=== PATIENT | male | born 1945 | race Caucasian/White ===

== ENCOUNTER 2023-07-15 12:56 | Emergency (ER) | payer OTHER ==
[2023-07-15] MEDS ORDERED: TDAP (DIPHTH,PERTUSS(ACELL),TET VAC) 0.5 ML VIAL IMVAC ONE (13:38)
[2023-07-15 13:52] LABS: Absolute Basophils 0.1 K/uL (0-0.5); Absolute Eosinophils 0.4 K/uL (0-0.5); Absolute Lymphocytes (CBC) 3.6 K/uL (0.7-4.9); Absolute Monocytes 1.3 K/uL (0.1-1.3); Absolute Neutrophil 5.8 K/uL (1.8-8.0); Basophils % 1.3 % (0-1.3); Eosinophils % 3.5 % (0-4.4); Hematocrit 39.7 % (39.6-49.0); Hemoglobin 12.8 g/dL (13.6-17.9); Lymphocytes % 31.8 % (15.3-44.8); MCH 28.6 pg (27.0-35.0); MCHC 32.1 g/dL (32.0-36.0); MCV 89.1 fL (80-100); MPV 9.2 fL (7.6-11.3); Monocytes % 11.8 % (3.3-12.3); Neutrophils % 51.6 % (41.7-73.7); Platelets 290 thou/uL (152-406); RBC Red Blood Cell Count 4.46 M/uL (4.33-5.43); Red Cell Distribution Width 17.4 % (12.1-15.2)
--- NOTE | 2023-07-15 14:07 | RAD REPORT ---
EXAM DESCRIPTION: CT - Head C Spine Mpr Wo Con - 07/15/2023 1:44 pm CLINICAL HISTORY: Head and neck injury status post fall. Head and neck pain COMPARISON: 2021 CT head TECHNIQUE: Computed axial tomography of the head and cervical spine was obtained. Sagittal and coronal reconstruction was performed. All CT scans are performed using dose optimization technique as appropriate and may include automated exposure control or mA/KV adjustment according to patient size. FINDINGS: Craniotomy presumably secondary to old frontal lobe bleeds. Frontal lobe gliosis. No acute intracranial bleed. No extra-axial fluid collection Fluid within the visualized sinuses and mastoids is not seen A cervical fracture is not visualized. No dislocation is noted. IMPRESSION: No acute intracranial abnormality is seen. A cervical fracture is not visualized. If the patient continues to have symptoms to suggest intracranial /spinal cord pathology then MRI wou ld be recommended
[2023-07-15 14:08] LABS: Anion Gap 8.1 mEq/L (5.0-15.0); Potassium 4.1 mEq/L (3.5-5.1); Troponin High Sensitivity 8.6 pg/mL (<58.9)
[2023-07-15] MEDS ORDERED: MECLIZINE HCL 12.5 MG TAB ONE (14:31)
--- NOTE | 2023-07-15 15:01 | RAD REPORT ---
EXAM DESCRIPTION: [place] Single View07/15/2023 2:44 pm CLINICAL HISTORY: Chest pain COMPARISON: 2017 FINDINGS: The lungs appear clear of acute infiltrate. The heart is normal size. Post surgical roberts es involve the chest. Pacemaker leads in place IMPRESSION: No acute abnormalities displayed
--- NOTE | 2023-07-15 15:05 | ER ---
Nurse's Notes [facility] Name: Sherman Pandey Jr Age: 77 yrs Sex: Male : 1945 Arrival Date: 07/15/2023 Time: 12:56 Bed 4 Private MD: Diagnosis: Other peripheral vertigo Presentation: 07/14 13:20 Chief complaint: Dizziness after mechanical fall from yesterday. Fell and hit head in yard, abrasion noted to left advent. Coronavirus screen: At this time, the client does not indicate any symptoms associated with coronavirus-19. Ebola Screen: No symptoms or risks identified at this time. Initial Sepsis Screen: Does the patient meet any 2 criteria? No. Patient's initial sepsis screen is negative. Does the patient have a suspected source of infection? No. Patient's initial sepsis screen is negative. Risk Assessment: Do you want to hurt yourself or someone else? Patient reports no desire to harm self or others. Onset of symptoms was July 14, 2023. 13:20 Method Of Arrival: Ambulatory hb 13:20 Acuity: JEN 3 hb Historical: - Allergies: 13:21 No Known Allergies; hb - PMHx: 13:21 Atrial Fib; CHF; CVA; Diabetes - IDDM; Hyperlipidemia; Colon CA (Hyperlipidemia); hb - PSHx: 13:21 Colon Resection (Hyperlipidemia); CABG (Hyperlipidemia); hb - Immunization history:: Adult Immunizations up to date. - Infectious Disease History:: Denies. - Social history:: Smoking status: Patient denies any tobacco usage or history of. Screenin:28 [facility] ED Fall Risk Assessment (Adult) History of falling in the last 3 months, mb9 including since admission Yes- single mechanical fall (1 pt) Confusion or Disorientation No (0 pts) Intoxicated or Sedated No (0 pts) Impaired Gait No (0 pts) Mobility Assist Device Used No (0 pt) Altered Elimination No (0 pt) Score/Fall Risk Level 0 - 2 = Low Risk Oriented to surroundings, Maintained a safe environment, Educated pt \T\ family on fall prevention, incl call for assistance when getting out of bed. Abuse screen: Denies threats or abuse. Nutritional screening: No deficits noted. Tuberculosis screening: No symptoms or risk factors identified. Assessment: 13:40 General: Appears in no apparent distress. Behavior is calm, cooperative. Pain: Denies mb9 pain. Neuro: Castaneda Agitation-Sedation Scale (RASS): 0 - Alert and Calm Level of Consciousness is awake, alert, obeys commands, Oriented to person, place, time, situation, Appropriate for age Reports dizziness. Neuro: Castaneda Agitation-Sedation Scale (RASS): Receiver Dispatcher are equal bilaterally Moves all extremities. Gait is steady, Speech is normal, Facial symmetry appears normal, Pupils are PERRLA, Intact. Cardiovascular: Heart tones S1 S2 present Patient's skin is warm and dry. Respiratory: Airway is patent Respiratory effort is even, unlabored, Respiratory pattern is regular, symmetrical, Breath sounds are clear bilaterally. GI: Abdomen is round non-distended. : No signs and/or symptoms were reported regarding the genitourinary system. EENT: No signs and/or symptoms were reported regarding the EENT system. Derm: Skin is pink, warm \T\ dry. Musculoskeletal: Range of motion: intact in all extremities. Injury Description: Abrasion sustained to face. 15:12 Reassessment: Patient appears in no apparent distress at this time. No changes from mb9 previously documented assessment. Patient and/or family updated on plan of care and expected duration. Pain level reassessed. Patient is alert, oriented x 3, equal unlabored respirations, skin warm/dry/pink. Vital Signs: 13:20 BP 144 / 64; Pulse 70; Resp 18; Temp 98.6(O); Pulse Ox 100% on R/A; Weight 113.4 kg; hb Height 5 ft. 11 in. ; Pain 6/10; 14:35 BP 144 / 62; Pulse 62; Resp 18; Pulse Ox 97% on R/A; mb9 15:12 BP 154 / 60; Pulse 66; Resp 18; Pulse Ox 100% on R/A; mb9 13:20 Body Mass Index 34.87 (113.40 kg, 180.34 cm) hb 13:20 Pain Scale: Adult hb ED Course: 12:59 Patient arrived in ED. im 13:07 Obie Lopez MD is Attending Physician. ec2 13:21 Triage completed. hb 13:22 Nicole Pichardo RN is Primary Nurse. mb9 13:22 Arm band placed on. hb 13:28 Fall risk band placed. Placed in gown. Bed in low position. Call light in reach. Side mb9 rails up X 1. Provided Education on: press call light if needing anything. Client placed on continuous cardiac and pulse oximetry monitoring. NIBP monitoring applied. pediatric neurologist on. 13:28 No provider procedures requiring assistance completed. mb9 13:38 Basic Metabolic Panel Sent. bp 13:39 CBC with Diff Sent. bp 13:39 Troponin HS Sent. bp 13:39 Inserted saline lock: 20 gauge in right antecubital area, using aseptic technique. bp Blood collected. 13:40 EKG done, by ED staff, reviewed by Obie Lopez MD. mb9 13:[address] via stretcher. mb9 13:45 CT Head C Spine In Process Unspecified. EDMS 14:46 XRAY Chest (1 view) In Process Unspecified. EDMS 15:12 IV discontinued, intact, bleeding controlled, No redness/swelling at site. Pressure mb9 dressing applied. Administered Medications: 13:57 Drug: Boostrix Tdap IM 0.5 ml IM once; as a single dose {Note: 7cz47 03/22/25 mb9 Thumb Reading.} Route: IM; Site: left deltoid; 14:30 Follow up: Response: No adverse reaction mb9 14:33 Drug: Meclizine PO 50 mg PO once Route: PO; mb9 15:12 Follow up: Response: No adverse reaction bp Medication: 13:28 VIS not applicable for this client. mb9 Outcome: 15:05 Discharge ordered by . ec2 15:12 Discharged to home ambulatory, mb9 15:12 Condition: stable 15:12 Discharge instructions given to patient, Instructed on discharge instructions, follow up and referral plans. Demonstrated understanding of instructions, follow-up care, medications, Prescriptions given X 1, 15:13 Patient left the ED. mb9 Signatures: Dispatcher [employer] EDLoyda Kiran RN RN hb Peltier, Brian, RN RN Nicole Barragan RN RN mb9 Melanie Lopez Edwin, MD MD ec2
--- NOTE | 2023-07-15 15:06 | EDPHYS ---
Physician Documentation [facility] Name: Sherman Pandey Jr Age: 77 yrs Sex: Male : 1945 Arrival Date: 07/15/2023 Time: 12:56 Bed 4 Private MD: ED Physician Obie Lopez HPI: 07/14 13:30 This 77 yrs old Male presents to ER via Ambulatory with complaints of ec2 Dizziness, Fall Injury. 13:30 Patient arrives today for evaluation after a ground-level fall along with some ec2 dizziness. Patient reports he has had 6+ months of dizziness, reports some instability on his feet. Patient reports he was seen by neurology in the past for this. Patient reports yesterday he had a fall. Patient reports some feelings of lightheadedness. Patient reports no chest pain or difficulty breathing, no nausea or vomiting, no recent illnesses.. 13:32 Of note patient also on anticoagulation. ec2 Historical: - Allergies: 13:21 No Known Allergies; hb - PMHx: 13:21 Atrial Fib; CHF; CVA; Diabetes - IDDM; Hyperlipidemia; Colon CA (Hyperlipidemia); hb - PSHx: 13:21 Colon Resection (Hyperlipidemia); CABG (Hyperlipidemia); hb - Immunization history:: Adult Immunizations up to date. - Infectious Disease History:: Denies. - Social history:: Smoking status: Patient denies any tobacco usage or history of. ROS: 13:30 Constitutional: as per hpi ec2 Exam: 13:30 Constitutional: GEN: NAD Head: atraumatic Eyes: EOMI Ears: External ears are ec2 normal. CV: regular rate LUNGS: no respiratory distress ABD: non-distended SKIN: no evidence of rashes MSK: no evidence of trauma NEURO: moves all extremities equally, cranial nerves II through XII intact, strength intact all 4 extremities, no pronator drift. Vital Signs: 13:20 BP 144 / 64; Pulse 70; Resp 18; Temp 98.6(O); Pulse Ox 100% on R/A; Weight 113.4 kg; hb Height 5 ft. 11 in. ; Pain 6/10; 14:35 BP 144 / 62; Pulse 62; Resp 18; Pulse Ox 97% on R/A; mb9 15:12 BP 154 / 60; Pulse 66; Resp 18; Pulse Ox 100% on R/A; mb9 13:20 Body Mass Index 34.87 (113.40 kg, 180.34 cm) hb 13:20 Pain Scale: Adult hb MDM: 13:23 Patient medically screened. ec2 13:30 Data reviewed: vital signs. ED course: Patient arrives today for evaluation of ec2 dizziness and evaluation after a fall. Examination remarkable for well-appearing nontoxic dividual is otherwise in no acute distress with a reassuring neurologic examination. Will obtain lab work, CT imaging of the head, EKG. Evaluating for processes such as electrolyte disturbances, arrhythmia, intracranial brain bleed. Will update the patient's tetanus status as well.. 13:38 ED course: EKG independently reviewed and interpreted by me, shows atrially paced ec2 rhythm with a right bundle branch block noted, rate of 60, no acute process identified. . 14:17 ED course: Metabolic profile is overall reassuring, CBC with minimal anemia noted, ec2 troponin within normal ranges. CT scan of the head and C-spine showed no acute traumatic pathology. . 15:02 ED course: Chest x-ray independently reviewed and interpreted by me, shows no acute ec2 intrathoracic process.. 15:04 ED course: On reassessment patient is well-appearing in no acute distress. Will ec2 discharge home, suspect vertigo, doubt central process given the patient's chronicity of symptoms as well as previous evaluations. Will discharge home. Return precautions given. . 05 13:30 Order name: Basic Metabolic Panel; Complete Time: 14:17 ec2 07/14 13:30 Order name: CBC with Diff; Complete Time: 14:17 ec2 07/14 13:30 Order name: Troponin HS; Complete Time: 14:17 ec2 07/14 13:30 Order name: XRAY Chest (1 view); Complete Time: 15:02 ec2 07/14 13:30 Order name: CT Head C Spine; Complete Time: 14:17 ec2 07/14 13:30 Order name: EKG; Complete Time: 13:31 ec2 07/14 13:30 Order name: Cardiac monitoring; Complete Time: 13:33 ec2 07/14 13:30 Order name: EKG - Nurse/Tech; Complete Time: 13:38 ec2 07/14 13:30 Order name: IV Saline Lock; Complete Time: 13:38 ec2 07/14 13:30 Order name: Labs collected and sent; Complete Time: 13:38 ec2 07/14 13:30 Order name: O2 Per Protocol; Complete Time: 13:33 ec2 07/14 13:30 Order name: O2 Sat Monitoring; Complete Time: 13:33 ec2 Administered Medications: 13:57 Drug: Boostrix Tdap IM 0.5 ml IM once; as a single dose {Note: 7cz47 03/22/25 mb9 [facility].} Route: IM; Site: left deltoid; 14:30 Follow up: Response: No adverse reaction mb9 14:33 Drug: Meclizine PO 50 mg PO once Route: PO; mb9 15:12 Follow up: Response: No adverse reaction bp Disposition Summary: 07/15/23 15:05 Discharge Ordered Notes: Location: Home ec2 Condition: Stable ec2 Diagnosis - Other peripheral vertigo ec2 Followup: ec2 - With: Private Physician - When: - Reason: Re-evaluation by your physician Discharge Instructions: - Discharge Summary Sheet ec2 - Vertigo, [id number] ec2 Forms: - Medication Reconciliation Form ec2 - Antibiotic Education ec2 - Prescription Opioid Use ec2 - Patient Portal Instructions ec2 - Leadership Thank You Letter ec2 Prescriptions: - Meclizine 25 mg Oral Tablet - take 1 tablet ORAL route every 8 hours As needed; 30 tablet; Refills: 0, ec2 Product Selection Permitted Signatures: Dispatcher [employer] EDLoyda Kiran RN RN Nicole Pichardo RN RN mb9 Obie Lopez MD MD ec2 Franki Leal RN bp Corrections: (The following items were deleted from the chart) 13:31 13:31 BASIC METABOLIC PANEL+C.LAB.BRZ ordered. EDMS EDMS 13:31 13:31 CBC+H.LAB.BRZ ordered. EDMS EDMS 13:31 13:31 Troponin High Sensitivity+C.LAB.BRZ ordered. EDMS EDMS
[2023-07-15 15:49] VITALS: BP 154/60; TEMP 98.6; O2SAT 100
--- NOTE | 2023-07-18 13:34 | EKG ---
Test Date: 1969-[birth year] Test Time: 06:28:15 Cistern Room Working Supervisor: MB MEASUREMENT RESULTS: Intervals: Rate: 60 DE: 260 QRSD: 152 QT: 510 QTc: 510 [place]lin: P: DE: 260 QRS: -49 T: 81 INTERPRETIVE STATEMENTS: Atrial-paced rhythm with prolonged AV conduction Right bundle branch block Left anterior fascicular block Bifascicular block Abnormal ECG No previous ECG available for comparison Electronically Signed On 07-18-23 13:21:28 CDT by Lakhwinder Aponte
== END 2023-07-15 15:13 | disposition home or self-care (01) ==
LOC: ER 12:56
DX: H81.399 Other peripheral vertigo, unspecified ear (principal); W18.30XA Fall on same level, unspecified, initial encounter; I48.91 Unspecified atrial fibrillation; Z79.01 Long term (current) use of anticoagulants; Z95.1 Presence of aortocoronary bypass graft
CPT/HCPCS: 85025; 80048; 36415; 84484; 70450; 72125; 71045; 96372; 99285; J8597; 93005

== ENCOUNTER 2023-11-03 06:56 | Day surgery (SDC) | payer OTHER ==
[2023-11-01 15:10] LABS: Absolute Basophils 0.1 K/uL (0-0.5); Absolute Eosinophils 0.3 K/uL (0-0.5); Absolute Monocytes 0.9 K/uL (0.1-1.3); Absolute Neutrophil 4.2 K/uL (1.8-8.0); Basophils % 0.8 % (0-1.3); Hematocrit 38.4 % (39.6-49.0); Hemoglobin 12.8 g/dL (13.6-17.9); Lymphocytes % 34.9 % (15.3-44.8); MCH 30.3 pg (27.0-35.0); MCHC 33.3 g/dL (32.0-36.0); MCV 90.9 fL (80-100); MPV 8.6 fL (7.6-11.3); Neutrophils % 49.3 % (41.7-73.7); Nucleated Red Blood Cells % 0.1 % (0-0); Platelets 289 thou/uL (152-406); RBC Red Blood Cell Count 4.23 M/uL (4.33-5.43); Red Cell Distribution Width 14.6 % (12.1-15.2)
[2023-11-01 15:24] LABS: Anion Gap 5.6 mEq/L (5.0-15.0); Potassium 4.6 mEq/L (3.5-5.1)
[2023-11-02 13:49] LABS: PT Prothrombin Time 11.9 SECONDS (9.4-12.5); PTT, Activated Partial Thromb 40.6 SECONDS (24.3-36.9); Protime INR 1.06
[2023-11-03] MEDS ORDERED: FENTANYL CITR 100 MCG/2 ML ONE (07:58)
[2023-11-03] MEDS ORDERED: propofoL 200 MG/20 ML VIAL IV ONE (07:58)
[2023-11-03] MEDS ORDERED: BACITRACIN OINTMENT 14 GM TUBE TOP ONE (08:29)
[2023-11-03] MEDS ORDERED: POVIDONE-IODINE 5% EYE DROPS ONE (08:30)
[2023-11-03] MEDS: CEFAZOLIN SODIUM 2 GM/VIAL ONE (08:37)
[2023-11-03] MEDS: LIDOCAINE HCL/EPINEPHRINE 20 ML MDV ONE (08:38)
[2023-11-03] MEDS: NA CHLORIDE 0.9% 1,000 ML ONE (08:38)
[2023-11-03] MEDS ORDERED: EPHEDRINE SULF 50 MG/ML VIAL ONE (08:54)
[2023-11-03] MEDS ORDERED: ONDANSETRON 4 MG/2 ML VIAL ONE (09:02)
[2023-11-03] MEDS ORDERED: dexAMETHasone 10 MG/ML VIAL ONE (09:18)
[2023-11-03] MEDS: HYDROCODONE/APAP 7.5/325 MG TAB ONE (11:42)
[2023-11-03 12:23] VITALS: BP 173/68; TEMP 97.6; O2SAT 93
--- NOTE | 2023-11-07 11:39 | OP ---
Date of Procedure: 11/03/2023 Surgeon: KRYSTINA VASQUEZ Primary Care Physician: Unknown. Preoperative Diagnosis: Neoplasm, uncertain behavior of right cheek. 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 Procedure Performed: Adjacent tissue transfer with excision of right cheek basal cell carcinoma unde r general sedation and local anesthetic. Anesthesia: General LMA anesthesia was administered. I also infiltrated approximately 10 mL of 1% l idocaine with 1:100,000 epinephrine at the excision and adjacent tissue transfer rotational flap site . Specimen: A 1.5 cm specimen was taken from the right medial cheek, which included the lesion which m easured 1.2 cm and an additional 3 mm margin was taken for a total of 1.5 cm, completely excised and the borders were marked and handed off the field for frozen section analysis. Preliminary results re veal basal cell carcinoma with positive deep central margin. An additional deep margin was taken, wh ich measured approximately 5 mm and this was handed off the field for permanent sections. Estimated Blood Loss: Less than 5 mL. Findings: Right medial cheek indurated, indented ulcerative neoplasm with peripheral erythema and he aped up borders. The lesion measured approximately 1.2 cm in diameter and the total excised diameter was 1.5 cm. Complications: None. Disposition: Stable. The patient tolerated the procedure well. Indications For Procedure: The patient presented to my outpatient clinic with a nonhealing ulcer inv olving the right medial cheek. Patient had history of chronic sun exposure. My suspicion was for a malignancy. The patient could not tolerate this procedure in the office setting due to anxiety. Jessica s, we scheduled him for removal under general sedation. He understood, all questions were answered. Risks versus benefits, complications were explained in detail and consent form signed and was placed in the chart. Description Of Procedure: Patient was transferred from the preoperative holding area to the operativ e suite by Department of Anesthesia, placed on the operating table supine and sedated in the normal f ashion. LMA was placed. I infiltrated approximately 10 mL of 1% lidocaine with 1:100,000 epinephrin e at the excision site. The patient was then sterilely prepped and draped. An incision was made around the neoplasm utilizing a #15 blade scalpel to include a 3 mm clear margin around the lesion for a total excised diameter of 1.5 cm. Incision was made through the epidermis, down to the subcutaneous tissue and then curved iris scissors were used to remove the lesion complete ly. The borders were marked for orientation and handed off the field. Initial frozen section analys is revealed basal cell carcinoma with a deep positive margin centrally. I then removed an additional 5 to 7 mm of deep subcutaneous tissue centrally and this was handed off the field and sent to Karen fernandez in formalin. Electrodesiccation of the deep margin was performed with monopolar electrocautery o n a setting of 20 of coagulation. The patient's defect measured approximately 2.3 cm and I could not close this area primarily secondary to the risk of ectropion of the right lower eyelid. Thus, I cre ated an inferiorly based rotational flap from the inferior medial cheek and the flap was marked with a surgical marker and then I used a #15 blade scalpel and curved iris scissors to perform the flap ta lakeisha care to include the melolabial crease, and this tissue was rotated superiorly into the defect. The flap measured 4.0 x 3.0 cm. I extensively undermined all edges and adjacent tissue transfer was performed by rotating the flap superiorly into the defect and tacking sutures were placed with 4-0 Mo nocryl in a simple interrupted fashion. I then reapproximated the subcutaneous and dermal tissue lay ers with 4-0 Monocryl in a simple interrupted fashion. The epidermis was reapproximated with a 4-0 M onocryl in a continuous running fashion. A compressive dressing was placed. He tolerated the proced ure well, will be discharged home on antibiotic and analgesic medication and will follow up in 1 week or sooner if needed. LOURDES/RONY Voice ID: [id number] Report ID: [id number]
== END 2023-11-03 12:11 | disposition home or self-care (01) ==
LOC: OR 06:56
PROVIDERS: ATTEND Otolaryngology Facial Plastic Surgery
PROC: 0JB10ZZ Excision of Face Subcutaneous Tissue and Fascia, Open Approach (ICD-10-PCS; 2023-11-03)
PROC: 0JX10ZB Transfer Face Subcutaneous Tissue and Fascia with Skin and Subcutaneous Tissue, Open Approach (ICD-10-PCS; principal; 2023-11-03 08:15)
DX: C44.319 Basal cell carcinoma of skin of other parts of face (principal)
CPT/HCPCS: 85025; 80048; 36415; 85610; 82947 ×2; 88331; 88332; 88305 ×2; 85730; 14040; J2704; J3010; J1100; J2405; J7030

== ENCOUNTER → 2024-03-08 | Day surgery (SDC) | payer OTHER ==
[2024-03-05 11:42] LABS: Absolute Basophils 0.1 K/uL (0-0.5); Absolute Eosinophils 0.4 K/uL (0-0.5); Absolute Lymphocytes (CBC) 4.6 K/uL (0.7-4.9); Absolute Monocytes 1.3 K/uL (0.1-1.3); Absolute Neutrophil 5.3 K/uL (1.8-8.0); Basophils % 0.7 % (0-1.3); Eosinophils % 3.3 % (0-4.4); Hematocrit 41.3 % (39.6-49.0); Lymphocytes % 39.2 % (15.3-44.8); MCH 28.7 pg (27.0-35.0); MCHC 31.4 g/dL (32.0-36.0); MCV 91.2 fL (80-100); Monocytes % 11.1 % (3.3-12.3); Neutrophils % 45.7 % (41.7-73.7); Platelets 292 thou/uL (152-406); RBC Red Blood Cell Count 4.53 M/uL (4.33-5.43)
[2024-03-05 11:45] LABS: PT Prothrombin Time 19.3 SECONDS (9.4-12.5); PTT, Activated Partial Thromb 48.4 SECONDS (24.3-36.9); Protime INR 1.75
[2024-03-05 11:56] LABS: Anion Gap 8.9 mEq/L (5.0-15.0); Potassium 3.9 mEq/L (3.5-5.1)
[~2024-03-08] MED LIST: BACITRACIN OINTMENT 14 GM TUBE TOP ONE; FENTANYL CITR 100 MCG/2 ML ONE; LIDOCAINE 1% MPF 5 ML VIAL ONE; MIDAZOLAM HCL 2 MG/2 ML INJ ONE; ONDANSETRON 4 MG/2 ML VIAL ONE; propofoL 200 MG/20 ML VIAL IV ONE
[2024-03-08] MEDS: NA CHLORIDE 0.9% 1,000 ML ONE (07:50)
[2024-03-08] MEDS: CEFAZOLIN SODIUM 2 GM/VIAL ONE (08:25)
[2024-03-08] MEDS: LIDOCAINE HCL/EPINEPHRINE 20 ML MDV ONE (08:27)
[2024-03-08 11:15] VITALS: BP 164/58; TEMP 98.2
[2024-03-08 11:45] VITALS: O2SAT 98
--- NOTE | 2024-03-09 12:52 | EKG ---
Test Date: 2024-03-05 Test Time: 12:16:20 Ship'S Master: FAITH MEASUREMENT RESULTS: Intervals: Rate: 61 NJ: 170 QRSD: 154 QT: 460 QTc: 463 Bow: P: NJ: 170 QRS: -33 T: 261 INTERPRETIVE STATEMENTS: Electronic atrial pacemaker Left axis deviation Right bundle branch block T wave abnormality, consider inferolateral ischemia Abnormal ECG Compared to ECG 08/24/2015 11:12:22 Left-axis deviation now present T-wave abnormality now present Possible ischemia now present Sinus rhythm no longer present First degree AV block no longer present Electronically Signed On 03-09-24 12:49:28 DEGREE CLERK by Haja Murphy
--- NOTE | 2024-03-10 17:59 | OP ---
Date of Procedure: 03/08/2024 Surgeon: KRYSTINA VASQUEZ Preoperative Diagnosis: Left ear helix basal cell carcinoma. Postoperative Diagnosis: Left ear helix basal cell carcinoma. Procedures: 1.Excision of left ear helix basal cell carcinoma. 2.Left ear reconstruction with advancement flap from left scalp. Anesthesia: General endotracheal anesthesia was administered. I also infiltrated approximately 10 m L of 1% lidocaine with 1:100,000 epinephrine at the excision site and at the advancement flap site. Estimated Blood Loss: Less than 30 mL. Specimens: Sent to Pathology for frozen section analysis. Initial diagnosis was basal cell carcinom a of the left ear helix with a small positive superior margin. Second specimen obtained from both vickers perior left ear helix was submitted to Pathology in formalin for permanent sections. Large left ear helical defect from ulcerative basal cell carcinoma extending from the helix posteriorly towards the postauricular sulcus. Complications: None. Disposition: Stable. The patient tolerated the procedure well. Indication For Procedure: The patient is a 78-year-old male who presented to my office with a large ulcerative left ear helical defect from an ulcerative suspicious malignancy involving the left ear he lix. These were indications to bring the patient to the operative suite for the above-mentioned proc edure. He understood. All questions were answered. Risks versus benefits and complications were ex plained in detail and a consent form was signed and was placed in the chart. Description Of Procedure: The patient was transferred from the preoperative holding area to the oper ative suite by Department of Anesthesia, placed on the operating room table supine, sedated and intub ated in normal fashion. I infiltrated approximately 10 mL of 1% lidocaine with 1:100,000 epinephrine at the left ear helix excision site and at the planned scalp advancement pedicle flap site. The pat ient was then sterilely prepped and draped. The lesion was removed by making an incision around the ulcerative neoplasm utilizing a #15 blade sca lpel, taking care to include a 3 mm clear margin all the way around the lesion. The lesion was remov ed and the peripheral borders were marked and the specimen was handed off the field for frozen sectio n analysis. The initial lesion was 2.2 cm in diameter and we included a 3 mm margin peripherally joselin platt then made the total excised diameter 2.5 cm. Pathology results revealed basal cell carcinoma with a small superior border positive margin. Thus, I elected to remove an additional 3 mm from the supe rior margin, making the total excised diameter 2.8 x 2.5 cm. Hemostasis was achieved with needlepoin t electrocautery. This defect was not able to be closed primarily. Thus, I created a pedicle flap f rom the left scalp utilizing a #15 blade scalpel and the flap measured 4.5 x 2.8 cm. Once the flap w as created, I then advanced it to the left helical defect and sutured it into place utilizing 4-0 Pro angelica and 4-0 Monocryl sutures in a simple interrupted fashion. I then left some of the scalp to heal in by secondary intention. Thus, after hemostasis was achieved, I placed Surgicel coated with antib iotic ointment into the left scalp defect followed by Xeroform gauze and then 4 x 4 gauze on top of t hat, and then a 4 x 4 gauze was placed over the left ear for compression dressing and Kerlix was wrap ped around the patient's head. He was transferred by Department of Anesthesia in stable condition, s ubsequently discharged to home on antibiotic and analgesic medication and will follow up in 1 week fo r second-stage division of the flap and inset and wound check. KD/MODL Voice ID: [id number] Report ID: [id number]
== END ==
LOC: OR 07:19
PROVIDERS: ATTEND Otolaryngology Facial Plastic Surgery
PROC: 0HX0XZZ Transfer Scalp Skin, External Approach (ICD-10-PCS; principal; 2024-03-08 07:58)
DX: C44.219 Basal cell carcinoma of skin of left ear and external auricular canal (principal); I10 Essential (primary) hypertension; N18.9 Chronic kidney disease, unspecified; E78.5 Hyperlipidemia, unspecified; I48.11 Longstanding persistent atrial fibrillation; E11.9 Type 2 diabetes mellitus without complications
CPT/HCPCS: 93005; 85025; 80048; 36415; 85610; 82947 ×2; 88331; 88332; 88305; 85730; 14060; J2704; J2003; J2250; J3010; J2405; J7030

== ENCOUNTER 2024-12-08 15:16 | Emergency (ER) | payer OTHER ==
[2024-12-08 16:13] LABS: PT Prothrombin Time 26.5 SECONDS (10-13.0); Protime INR 2.41
[2024-12-08 16:25] LABS: Absolute Lymphocytes (CBC) 3.1 K/uL (0.7-4.9); Hematocrit 37.7 % (39.6-49.0); Hemoglobin 12.7 g/dL (13.6-17.9); MCH 29.4 pg (27.0-35.0); MCHC 33.7 g/dL (32.0-36.0); MCV 87.2 fL (80-100); MPV 8.6 fL (7.6-11.3); Nucleated RBC Absolute Count 0.0 (0-0); Nucleated Red Blood Cells % 0.0 % (0-0); RBC Red Blood Cell Count 4.33 M/uL (4.33-5.43); White Blood Count 10.70 thou/uL (4.3-10.9)
[2024-12-08 16:36] LABS: ALT/SGPT 28.0 U/L (16-61); AST/SGOT 16.0 U/L (15-37); Albumin 3.4 g/dL (3.4-5.0); Albumin/Globulin Ratio 1.0 (1.1-1.8); Alkaline Phosphatase 60.0 U/L (45-117); Anion Gap 9.2 mEq/L (5.0-15.0); BUN Blood Urea Nitrogen 22.0 mg/dL (7-18); Bilirubin Indirect, Calculated 0.4 mg/dL (0.2-0.8); Globulin 3.5 g/dL (2.3-3.5); Glucose Level 188.0 mg/dL (74-106); Magnesium 2.0 mg/dL (1.6-2.4); NT PRO-BNP 135.0 pg/mL (<450); Potassium 4.2 mEq/L (3.5-5.1); Troponin High Sensitivity 6.8 pg/mL (<58.9)
--- NOTE | 2024-12-08 17:13 | RAD REPORT ---
Procedure: Chest Single View HISTORY: Chest pain COMPARISON: 2023 FINDINGS: The lungs appear clear of acute infiltrate. No significant pleural effusion noted. The heart is mildly enlarged. Pacemaker leads in place. Post surgical chest. IMPRESSION: No acute abnormality is displayed.
--- NOTE | 2024-12-08 17:13 | RAD REPORT ---
EXAMINATION: CTA CHEST PE CLINICAL INDICATION: Chest pain TECHNIQUE: 100 cc 370 Isovue administered intravenously. This examination was performed according to an angiographic protocol with 3D post-processing. This involves 3D reconstructions, MIPs, volume rendered images and/or shaded surface rendering. One or more of the following dose reduction techniqu es were used: Automated exposure control, adjustment of the mA and/or kV according to patient size, and/or iterative reconstruction. Unless otherwise specified, incidental findings do not require dedic ated imaging follow-up. [id number]. COMPARISON: No prior exam. FINDINGS: A pulmonary embolus is not seen. An aortic aneurysm not noted. No pleural effusion. No pericardial effusion.. The heart is mildly enlarged. Lungs are clear. Tiny gallstones. Gallbladder wall not thickened. IMPRESSION: No evidence of a pulmonary embolism Cholelithiasis without evidence of cholecystitis
--- NOTE | 2024-12-08 17:31 | ER ---
Nurse's Notes [facility] Name: Sherman Pandey Jr Age: 79 yrs Sex: Male : 1945 Arrival Date: 12/08/2024 Time: 15:16 Bed 5 Private MD: Diagnosis: Chest pain Presentation: 12/08 15:30 Chief complaint: Patient states: RUQ pain and R mid back pain that started on Tuesday. me1 Pain ranges from 3/10-6/10. Denies nausea. Denies SOB. Coronavirus screen: Vaccine status: Patient reports receiving the 2nd dose of the covid vaccine. Ebola Screen: No symptoms or risks identified at this time. Initial Sepsis Screen: Does the patient meet any 2 criteria? No. Patient's initial sepsis screen is negative. Does the patient have a suspected source of infection? No. Patient's initial sepsis screen is negative. Risk Assessment: Do you want to hurt yourself or someone else? Patient reports no desire to harm self or others. Onset of symptoms was December 04, 2024. 15:30 Method Of Arrival: Wheelchair me1 15:30 Acuity: JEN 3 me1 Historical: - Allergies: 15:31 No Known Allergies; me1 - PMHx: 15:31 Atrial Fib; COLON CA (Unknown); CHF; CVA; Diabetes - IDDM; Hyperlipidemia; skin cancer me1 (Unknown); brain tumor (Unknown); - PSHx: 15:31 CABG (ip); colon resection (ip); excision of brain tumor (Unknown); skin cancer me1 excision (Unknown); - Immunization history:: Adult Immunizations up to date. - Infectious Disease History:: Denies. - Social history:: Smoking status: Patient denies any tobacco usage or history of. Screenin:34 [facility] ED Fall Risk Assessment (Adult) History of falling in the last 3 months, cm10 including since admission No falls in past 3 months (0 pts) Confusion or Disorientation No (0 pts) Intoxicated or Sedated No (0 pts) Impaired Gait No (0 pts) Mobility Assist Device Used No (0 pt) Altered Elimination No (0 pt) Score/Fall Risk Level 0 - 2 = Low Risk Oriented to surroundings, Maintained a safe environment, Hourly rounding (assess needs \T\ fall precautionary measures) done. Abuse screen: Denies threats or abuse. Denies injuries from another. Nutritional screening: No deficits noted. Tuberculosis screening: No symptoms or risk factors identified. Assessment: 15:45 General: Appears in no apparent distress. comfortable, Behavior is calm, cooperative. cm10 Pain: Complains of pain in abdomen Pain radiates to back Pain currently is 6 out of 10 on a pain scale. Neuro: No deficits noted. Level of Consciousness is awake, alert, obeys commands, Oriented to person, place, time, situation, Appropriate for age. Cardiovascular: No deficits noted. Patient's skin is warm and dry. Rhythm is GI: Reports upper abdominal pain. 17:00 Reassessment: Patient is alert, oriented x 3, equal unlabored respirations, skin aa5 warm/dry/pink. Patient states feeling better. 17:45 Reassessment: Patient is alert, oriented x 3, equal unlabored respirations, skin aa5 warm/dry/pink. Vital Signs: 15:30 BP 159 / 63; Pulse 60; Resp 17; Temp 97.7; Pulse Ox 98% ; Weight 113.4 kg; Height 5 ft. me1 11 in. ; Pain 6/10; 17:00 BP 148 / 98; Pulse 60; Resp 18 S; Pulse Ox 99% on R/A; aa5 15:30 Body Mass Index 34.87 (113.40 kg, 180.34 cm) me1 15:30 Pain Scale: Adult me1 ED Course: 15:18 Patient arrived in ED. ts1 15:20 Gabi Roach MD is Attending Physician. sp3 15:31 Triage completed. me1 15:31 Arm band placed on Patient placed in an exam room. me1 15:34 Muriel Worthy, RN is Primary Nurse. cm10 15:34 EKG done, by ED staff, reviewed by Gabi Roach MD. cm10 15:35 Patient has correct armband on for positive identification. Bed in low position. Call cm10 light in reach. Side rails up X 1. Client placed on continuous cardiac and pulse oximetry monitoring. NIBP monitoring applied. ekg monitor tech on. 15:49 Inserted saline lock: 20 gauge in left antecubital area, using aseptic technique. Blood cm10 collected. Flushed with 10 mL NS Missed attempt(s): 20 gauge in right antecubital area. Bleeding controlled, band aid applied, catheter tip intact. 15:58 XRAY Chest (1 view) In Process Unspecified. EDMS 15:59 Basic Metabolic Panel Sent. cm10 15:59 CBC with Diff Sent. cm10 15:59 LFT's Sent. cm10 15:59 Magnesium Sent. cm10 15:59 NT PRO-BNP Sent. cm10 15:59 PT-INR Sent. cm10 15:59 Troponin HS Sent. cm10 16:35 Patient maintains SpO2 saturation greater than 95% on room air. cm10 16:53 CT Chest For PE Angio In Process Unspecified. EDMS 17:45 No provider procedures requiring assistance completed. IV discontinued, intact, aa5 bleeding controlled, No redness/swelling at site. Pressure dressing applied. Administered Medications: No medications were administered Medication: 16:34 VIS not applicable for this client. cm10 Outcome: 17:30 Discharge ordered by . sp3 17:45 Discharged to home via wheelchair, with significant other, aa5 17:45 Condition: stable 17:45 Discharge instructions given to patient, significant other, Instructed on discharge instructions, follow up and referral plans. medication usage, Demonstrated understanding of instructions, follow-up care, medications, Prescriptions given X 1, 17:52 Patient left the ED. em1 Signatures: Dispatcher [employer] em1 Roxi Lopez, RN RN aa5 Gabi Roach MD MD sp3 Jayla Eisenberg PAS PAS ts1 Muriel Worthy RN RN cm10 Cristel Paulino RN RN me1
--- NOTE | 2024-12-08 17:31 | EDPHYS ---
Physician Documentation [facility] Name: Sherman Pandey Jr Age: 79 yrs Sex: Male : 1945 Arrival Date: 12/08/2024 Time: 15:16 Bed 5 Private MD: ED Physician Gabi Roach HPI: 12/08 15:36 This 79 yrs old Male presents to ER via Wheelchair with complaints of Back Pain, Chest sp3 Pain. 15:36 79-year-old male history of atrial fibrillation, history of colon cancer, CHF, CVA, sp3 diabetes, hyperlipidemia presents to the ED with chest pain that started earlier this morning. Chest pain is described as substernal and emanating from the back. Patient states he does not have any fever, headache, neck pain, shortness of breath, abdominal pain, vomiting, diarrhea, syncope, known sick contact, travel history, prolonged immobilization, prior DVT or PE, or any other signs or symptoms on ROS at this time.. Historical: - Allergies: 15:31 No Known Allergies; me1 - PMHx: 15:31 Atrial Fib; COLON CA (Unknown); CHF; CVA; Diabetes - IDDM; Hyperlipidemia; skin cancer me1 (Unknown); brain tumor (Unknown); - PSHx: 15:31 CABG (ip); colon resection (ip); excision of brain tumor (Unknown); skin cancer me1 excision (Unknown); - Immunization history:: Adult Immunizations up to date. - Infectious Disease History:: Denies. - Social history:: Smoking status: Patient denies any tobacco usage or history of. ROS: 15:41 Constitutional: Negative for fever, chills, and weight loss, Eyes: Negative for injury, sp3 pain, redness, and discharge, ENT: Negative for injury, pain, and discharge, Neck: Negative for injury, pain, and swelling, Respiratory: Negative for shortness of breath, cough, wheezing, and pleuritic chest pain, Abdomen/GI: Negative for abdominal pain, nausea, vomiting, diarrhea, and constipation, Back: Negative for injury and pain, MS/Extremity: Negative for injury and deformity, Skin: Negative for injury, rash, and discoloration, Neuro: Negative for headache, weakness, numbness, tingling, and seizure, Psych: Negative for depression, anxiety, suicide ideation, homicidal ideation, and hallucinations, Allergy/Immunology: Negative for hives, rash, and allergies, Endocrine: Negative for neck swelling, polydipsia, polyuria, polyphagia, and marked weight changes, 15:41 All other systems are negative, Exam: 15:41 Constitutional: This is a well developed, well nourished patient who is awake, alert, sp3 and in no acute distress. Head/Face: Normocephalic, atraumatic. Eyes: Pupils equal round and reactive to light, extra-ocular motions intact. Lids and lashes normal. Conjunctiva and sclera are non-icteric and not injected. Cornea within normal limits. Periorbital areas with no swelling, redness, or edema. ENT: Nares patent. No nasal discharge, no septal abnormalities noted. External auditory canals are clear. Oropharynx with no redness, swelling, or masses, exudates, or evidence of obstruction, uvula midline. Mucous membranes moist. Neck: Trachea midline, no thyromegaly or masses palpated, and no cervical lymphadenopathy. Supple, full range of motion without nuchal rigidity, or vertebral point tenderness. No Meningismus. Chest/axilla: Normal chest wall appearance and motion. Nontender with no deformity. No lesions are appreciated. Cardiovascular: Regular rate and rhythm with a normal S1 and S2. No gallops, murmurs, or rubs. Normal PMI, no JVD. No pulse deficits. Respiratory: Lungs have equal breath sounds bilaterally, clear to auscultation and percussion. No rales, rhonchi or wheezes noted. No increased work of breathing, no retractions or nasal flaring. Abdomen/GI: Soft, non-tender, with normal bowel sounds. No distension or tympany. No guarding or rebound. No evidence of tenderness throughout. Back: No spinal tenderness. No costovertebral tenderness. Full range of motion. Skin: Warm, dry with normal turgor. Normal color with no rashes, no lesions, and no evidence of cellulitis. MS/ Extremity: Pulses equal, no cyanosis. Neurovascular intact. Full, normal range of motion. Neuro: Awake and alert, GCS 15, oriented to person, place, time, and situation. Cranial nerves II-XII grossly intact. Motor strength 5/5 in all extremities. Sensory grossly intact. Cerebellar exam normal. Normal gait. Psych: Awake, alert, with orientation to person, place and time. Behavior, mood, and affect are within normal limits. 15:41 Abdomen/GI: Abdominal ventral hernia noted without entrapment., 15:52 ECG was reviewed by the Attending Physician. EKG demonstrates atrial paced rhythm with sp3 adequate ventricular capture at 60 bpm with right bundle branch block. Vital Signs: 15:30 BP 159 / 63; Pulse 60; Resp 17; Temp 97.7; Pulse Ox 98% ; Weight 113.4 kg; Height 5 ft. me1 11 in. ; Pain 6/10; 17:00 BP 148 / 98; Pulse 60; Resp 18 S; Pulse Ox 99% on R/A; aa5 15:30 Body Mass Index 34.87 (113.40 kg, 180.34 cm) me1 15:30 Pain Scale: Adult me1 MDM: 15:26 Medical Screening Exam initiated sp3 15:42 Data reviewed: vital signs, nurses notes, old medical records, lab test result(s), EKG, sp3 radiologic studies. ED course: 79-year-old male with extensive cardiac history now presents with recurrent chest pain into the back. X-rays paced. Differential diagnosis includes acute coronary syndrome, aortic pathology, PE, reflux or other GI pathology, musculoskeletal, among others. Standard cardiac workup pending including CT scan of the chest. Disposition pending workup and patient course.. 17:29 ED course: Full workup negative including CT chest. Patient states the pain is more sp3 chest wall on the right side. He does not believe it is his heart. He wishes to be discharged home even though I have offered him 23-hour observation with serial cardiac markers and cardiology consultation. Vascular pathology ruled out based on CT. We will safely discharge patient home on tramadol with clear instructions to return if he changes mind or develops any new or different symptoms.. 12/08 15:27 Order name: Basic Metabolic Panel; Complete Time: 16:44 sp3 12/08 15:27 Order name: CBC with Diff; Complete Time: 16:44 sp3 12/08 15:27 Order name: LFT's; Complete Time: 16:44 sp3 12/08 15:27 Order name: Magnesium; Complete Time: 16:44 sp3 12/08 15:27 Order name: NT PRO-BNP; Complete Time: 16:44 sp3 12/08 15:27 Order name: PT-INR; Complete Time: 16:44 sp3 12/08 15:27 Order name: Troponin HS; Complete Time: 16:44 sp3 12/08 15:27 Order name: XRAY Chest (1 view); Complete Time: 17:18 sp3 12/08 15:45 Order name: CT Chest For PE Angio; Complete Time: 17:18 sp3 12/08 15:27 Order name: Cardiac monitoring; Complete Time: 15:34 sp3 12/08 15:27 Order name: EKG - Nurse/Tech; Complete Time: 15:34 sp3 12/08 15:27 Order name: IV Saline Lock; Complete Time: 15:59 sp3 12/08 15:27 Order name: Labs collected and sent; Complete Time: 15:59 sp3 12/08 15:27 Order name: O2 Per Protocol; Complete Time: 15:34 sp3 12/08 15:27 Order name: O2 Sat Monitoring; Complete Time: 15:34 sp3 Administered Medications: No medications were administered Disposition Summary: 12/08/24 17:30 Discharge Ordered Notes: Location: Home sp3 Condition: Stable sp3 Diagnosis - Chest pain sp3 Followup: sp3 - With: Private Physician - When: Upon discharge from the Emergency Department - Reason: Continuance of care Discharge Instructions: - Discharge Summary Sheet sp3 - Nonspecific Chest Pain, Adult sp3 Forms: - Medication Reconciliation Form sp3 - Antibiotic Education sp3 - Prescription Opioid Use sp3 - Patient Portal Instructions sp3 - Leadership Thank You Letter sp3 Prescriptions: - Tramadol 50 mg Oral Tablet - take 1 tablet ORAL route every 8 hours as needed; 12 tablet; Refills: 0, sp3 Product Selection Permitted Signatures: Dispatcher [employer] EDMS Gabi Roach MD MD sp3 Cristel Paulino RN RN me1 Corrections: (The following items were deleted from the chart) 15:27 15:27 BASIC METABOLIC PANEL+C.LAB.BRZ ordered. EDMS EDMS 15:27 15:27 CBC+H.LAB.BRZ ordered. EDMS EDMS 15:27 15:27 HEPATIC FUNCTION+C.LAB.BRZ ordered. EDMS EDMS 15:27 15:27 MAGNESIUM+C.LAB.BRZ ordered. EDMS EDMS 15:27 15:27 PROBNP+C.LAB.BRZ ordered. EDMS EDMS 15:27 PROTIME (+INR)+COAG.LAB.BRZ ordered. EDMS EDMS 15: Troponin High Sensitivity+C.LAB.BRZ ordered. EDMS EDMS 15: Chest Single View+RAD.RAD.BRZ ordered. EDMS EDMS
[2024-12-08 18:03] VITALS: BP 159/63; TEMP 97.7; O2SAT 98
== END 2024-12-08 17:52 | disposition home or self-care (01) ==
LOC: ER 15:16
DX: R07.9 Chest pain, unspecified (principal); I50.9 Heart failure, unspecified; I48.91 Unspecified atrial fibrillation; E78.5 Hyperlipidemia, unspecified; E11.9 Type 2 diabetes mellitus without complications; Z86.73 Personal history of transient ischemic attack (TIA), and cerebral infarction without residual deficits; Z85.038 Personal history of other malignant neoplasm of large intestine
CPT/HCPCS: 93005; 85025; 80048; 36415; 83735; 85610; 80076; 84484; 83880; 71275; 71045; 99284; Q9967